=== PATIENT | female | born 1960 | race Caucasian/White ===

== ENCOUNTER 2019-11-03 07:51 | Outpatient (REF) | payer MEDICARE, OTHER, SELFPAY ==
[2019-11-03 13:15] LABS: Chol HDL Ratio 2.98 mg/dL (0.0-4.40); Cholesterol 182 mg/dL (0-200); Glucose 79 mg/dL (65-115); HDL Cholesterol 61 mg/dL (60-100); LDL Cholesterol Calculated 107 mg/dL (50-129); LDL HDL Ratio 1.75 RATIO (0.00-3.22); Triglycerides 72 mg/dL (0-150)
[2019-11-03 14:16] LABS: Estmated Average Glucose 111; Hemoglobin A1C 5.5 % (4.0-6.0)
== END 2019-11-03 07:52 | disposition home or self-care (01) ==
LOC: LAB 07:51
PROVIDERS: Family Provider Internal Medicine; Visit Provider Dermatology
DX: Z01.89 Encounter for other specified special examinations (principal)
CPT/HCPCS: 80061; 82947; 83036

== ENCOUNTER 2020-04-15 15:18 | Outpatient (CLI) | payer MEDICARE, OTHER, SELFPAY ==
--- NOTE | 2020-04-15 15:38 | XR_ITS ---
WS: [id number] SCREENING DEXA SCAN [employer] CLINICAL INFORMATION: POST MENOPAUSAL COMPARISON: 015 FINDINGS: The L1-L4 bone mineral density measures 1.171 g/cm2. This corresponds to a T score score of -0.1 and Z score of 0.7. Left femoral neck bone mineral density measures 0.961 g/cm2. This corresponds to a T score of -0.4 an d Z score of 0.2. Right femoral neck bone mineral density measures 0.874 g/cm2. This corresponds to a T score -1.1of an d Z score of -0.4. Mean femoral neck bone mineral density measures 0.917 g/cm2. This corresponds to a T score of -0.7 an d Z score of -0.1. XR/XR DEXA axial skeleton* [id number] IMPRESSION: Osteopenia at the lower end of the range. Patient's FRAX calculated 10 year probability for major osteoporotic fracture i s 7.4 % and osteoporotic hip fracture is 0.6%.
== END 2020-04-15 15:19 | disposition home or self-care (01) ==
LOC: RADWPI 15:22
PROVIDERS: Family Provider Internal Medicine; PCP Internal Medicine; Visit Provider Internal Medicine
DX: Z78.0 Asymptomatic menopausal state (principal); M85.89 Other specified disorders of bone density and structure, multiple sites
CPT/HCPCS: 77080

== ENCOUNTER 2020-09-03 15:21 | Outpatient (CLI) | payer MEDICARE, OTHER, SELFPAY ==
--- NOTE | 2020-09-03 15:34 | MM_ITS ---
WS: [id number] BILATERAL SCREENING DIGITAL MAMMOGRAM WITH CAD HISTORY: SCREENING COMPARISON: 05/02/2019 and 04/07/2018 Bilateral CC and MLO views submitted. Computer aided detection analyzed. Breast composition: There are scattered areas of fibroglandular density. No suspicious masses, microc alcifications or architectural distortion. Asymmetries are stable. MM/[place] [id number] IMPRESSION: BI-RADS: 2-Benign FOLLOW UP: 1 Year Follow-up
== END 2020-09-03 15:22 | disposition home or self-care (01) ==
PROVIDERS: PCP Internal Medicine; Visit Provider Internal Medicine
DX: Z12.31 Encounter for screening mammogram for malignant neoplasm of breast (principal)
CPT/HCPCS: 77067

== ENCOUNTER 2020-10-29 13:07 | Outpatient (CLI) | payer MEDICARE, OTHER, SELFPAY ==
--- NOTE | 2020-10-29 13:20 | CT_ITS ---
WS: [id number] CT ABDOMEN AND PELVIS WITH CONTRAST HISTORY: ACUTE ABDOMINAL PAIN TECHNIQUE: Imaging performed of the abdomen and pelvis with IV contrast. Single phase imaging of the abdomen. Coronal and sagittal reformats are submitted. All CT scans at [facility] use at least one of these dose optimization techniques: automated exposure control; mA and/or kV adjustment per patient size (includes targeted exams where dose is matched to clinical indication); or iterativ e reconstruction. IV CONTRAST: Visipaque 320; 95 mL IV. Oral contrast: No DLP: 873.75 mGy.cm COMPARISON: None available. Lower thorax: Lung bases are clear. Heart is normal size. Small hiatal hernia. Liver/biliary system: Normal size with no intrahepatic dilatation. Gallbladder: Normal. No gallstones or wall thickening. No pericholecystic fluid. Pancreas: Normal. Spleen: Normal. Adrenal glands: Normal. Right kidney: Normal. Left kidney: Normal. Aorta: Normal. Lymphadenopathy: None. Free fluid: None. GI tract: There is very mild dilatation of the appendix. Mild enhancement and haziness of the wall. A ppendix measures 8.2 mm. No calcifications with the appendix. Abdominal wall: Unremarkable abdominal wall. No hernia. Pelvis: Normal. Bones: Sclerotic foci within the bones of the pelvis and proximal RIGHT femur due to bone islands. CT/CT abdomen pelvis w con* [id number] IMPRESSION: 1. Very early acute appendicitis. No rupture or free fluid. 2. No renal stone or obstruction. Notified Chucky Cabral MD at 10/29/2020 2:19 PM.
[2020-10-29] MEDS: iodixanol 320 mg/mL 100mL Btl IV (14:07)
== END 2020-10-29 13:08 | disposition home or self-care (01) ==
LOC: RAD 13:15
PROVIDERS: PCP Internal Medicine; Visit Provider Family Medicine
DX: K35.80 Unspecified acute appendicitis (principal); R10.9 Unspecified abdominal pain
CPT/HCPCS: 74177

== ENCOUNTER 2020-10-29 15:42 | Day surgery (SDC) | payer MEDICARE, OTHER, SELFPAY ==
[2020-10-29] VITALS (11 sets, daily range): BP systolic 95–147; BP diastolic 63–115; PULSE 74–102; RESP 16–75; TEMP 36.5–37.3; O2SAT 94–100; BMI 32.9
--- NOTE | 2020-10-29 15:43 | ANES.PREANE2 ---
Pre-Anesthetic Assessment Pre-Anesthetic Assessment: Preop Diagnosis: Appendicitis Proposed Procedure: Operation Date: 10/29/20 16:05 Proposed Procedures p Laparoscopic Appendectomy 85475 K35.80(Not Applicable) - Jose Fernández MD Familial anesthetic complications: PONV Was Beta Rosmery taken within 24 hours: N/A Last intake: NPO > 8 hrs (black coffee shortly before 0900) Social: Social History: No alcohol and No tobacco Exam: Pre-Anes Outpt Exam: alert, oriented x 3, clear to auscultation bilaterally and regular rate & rhythm Airway: Cervical ROM: WNL MP: 2 Dentition: False and Partials GI: GI: GERD Anesthetic Plan: ASA status: 1E Anesthesia: General Risk of > 500 ml blood loss (7ml/kg in children): No Data Anesthesia Cardiac Studies: No Data to Display
[2020-10-29] MEDS: sodium chloride 0.9% 1,000 ML 30 ML IV (15:45)
--- NOTE | 2020-10-29 16:35 | PM.HP ---
Providers/Chief Complaint Primary Care Provider: Charly Mcbride DO Chief Complaint: appendectomy History of Present Illness Yumiko Donahue is a 60 year old female who presented to her PCPs office today morning with complaints of abdominal pain which started early this morning. Patient states that the pain was initially generalized but now is localized to the right lower quadrant. She had some nausea and chills but denies any fevers or vomiting. No constipation or diarrhea. She had a normal colonoscopy last year. Review of Systems General: Reports: 10 or more systems reviewed and unremarkable except in HPI and below Medications/Allergies Home Medications Medication Instructions Recorded Confirmed Last Taken Type alprazolam 0.5 mg PO DAILY 10/29/20 10/29/20 10/27/20 History cholecalciferol (vitamin D3) 50 mcg PO DAILY 10/29/20 10/29/20 10/28/20 History [Vitamin D3] omeprazole 20 mg PO DAILY 10/29/20 10/29/20 10/28/20 History sertraline 50 mg PO BEDTIME 10/29/20 10/29/20 10/28/20 History tizanidine 4 mg PO TID PRN 10/29/20 10/29/20 10/07/20 History Allergies Allergy/AdvReac Type Severity Reaction Status Date / Time No Known Allergies Allergy Unverified 10/29/20 15:05 PFSH Acute PFSH: Medical History (Updated 10/29/20 @ 16:37 by Jose Fernández MD) Anxiety and depression GERD (gastroesophageal reflux disease) Surgical History (Updated 10/29/20 @ 16:37 by Jose Fernández MD) H/O: hysterectomy S/P knee replacement Status post colonoscopy Vitals/I&O/Wt Last Vital Signs Temp 98.3 F 10/29/20 16:34 Pulse 84 10/29/20 16:34 Resp 18 10/29/20 16:34 BP 147/115 10/29/20 16:34 Pulse Ox 95 10/29/20 16:34 Weight last 48 hrs Weight 180 lb Weight 180 lb Physical Exam Narrative: EXAM NARRATIVE: HEENT: Normocephalic Eye: Sclera /conjunctiva normal Respiratory and chest: Bilateral clear breath sounds on auscultation Cardiovascular: Normal S1 and S2 heart sounds Abdomen: Soft to palpation, tender right lower quadrant, guarding present, no rigidity Neurological: Oriented to place person and time Skin: Intact, no lesions appreciated on gross exam A&P Assessment and plan (1) Acute appendicitis: 60-year-old female with right lower quadrant pain and tenderness, leukocytosis and CT scan showing dilated appendix. Discussed findings with the patient, plan for laparoscopic possible open appendectomy Procedure, risks, benefits and alternatives have been discussed with the patient who wishes to proceed with surgery. Status: Inactive (2) Acute appendicitis: Status: Acute Attestations Medical Necessity Statement*: Acute appendicitis requiring surgery Coding Level of Care Code Acute Damper Worker for [facility] Fwd Diagnoses Acute appendicitis K35.80 Acute appendicitis K35.80
[2020-10-29] MEDS: piperacillin-tazobactam 3.375 GM in sodium chloride 0.9% (plus) 50 ML IV (16:40)
--- NOTE | 2020-10-29 17:23 | P.OP_ITS ---
Operative Report Date of procedure: October 29, 2020 Pre-op Diagnosis: Acute appendicitis Post-op diagnosis: same Procedure Done: Laparoscopic appendectomy Specimens removed/disposition: Appendix Surgeon: Jose Fernández Anesthesia: General Condition: stable Disposition: PACU Procedure: The patient was taken to the Operating Room and intubated under general anesthesia after antibiotic had been administered. Using a 15 blade, a 1-cm infraumbilical incision was made and using open Adina technique, the peritoneal cavity was entered. A 12mm port with balloon was placed and 14 mm of pneumoperitoneum was created and 10-mm 30 degree scope was introduced. Two separate 5mm ports were placed in the left and right lower quadrant under direct visualization. The appendix was noted in the right lower quadrant and appeared acutely inflamed.. Using [place] forceps, an opening was made in the mesoappendix near the base of the appendix. An Endo LUIS stapler 45mm long 3.5mm blue load was introduced to divide the appendix at it's base. Using electroca utery, the mesoappendix including the appendicular artery was divided. There was no bleeding noted and the staple line appeared intact. The right lower quadrant was irrigated with saline and an EndoCatch bag was introduced to remove the appendix. All three ports were removed under direct visualization and there was no bleeding noted on the port sites. 10 cc of 0.5% Marcaine was infiltrated at the port sites. The fascia at the umbilical port was closed using figure of eight 0-Vicryl sutures and subcutaneous tissue was approximated using 3-0 Vicryl and skin at all 3 port sites was closed using 4-0 Monocryl and Dermabond. The patient was extubated and transferred recovery room in stable condition.
[2020-10-29] MEDS: HYDROmorphone 1 mg/mL INJ 1 mL 0.5 MG IVP (17:48)
--- NOTE | 2020-10-29 18:07 | SUR.PHASEI ---
1803 PT TO OPS 10 EARLIER AWAKE ALERT GRIMICING C/O OF APD PAIN OF 10 SEE FENTANYL 100MCG IVP GIVEN AT BEDSIDE IN INCREMENTS BY MISHA SERNA, PT REMAINS AWAKE ALERT RESTLESS AND C/O OF UNCHANGING PAIN ABD IS SOFT SITES X 3 D/I SEE MEDS GIVEN ORDERED BY TUBE CLEANING OPERATOR. 1748 DILAUDID IVP GIVEN FOR PAIN ABOVE FENTANYL HAD ALREADY BEEN GIVEN WITH NO RESULTS. PT NOW SMILING AND TALKING TO DAUGHTER AT BEDSIDE AND TAKING OCC ICE CHIPS HANDOFF AT BEDSIDE TO OPS NURSE. VSS SATS 98% ON RA.
--- NOTE | 2020-10-29 18:15 | ANE.PACU2 ---
Inpatient post-anesthesia follow up: Airway intact: Yes Vital signs: Temperature 97.7 F Pulse Rate 78 Respiratory Rate 18 Blood Pressure 123/74 Pulse Oximetry 94 Oxygen Delivery Me thod Room Air Oxygen Flow Rate 8 Fraction of Inspir ed Oxygen Hydration adequate: Yes Nausea and vomiting: No Pain level: 3 Mental status: Baseline
== END 2020-10-29 19:02 | disposition home or self-care (01) ==
PROVIDERS: PCP Internal Medicine; Visit Provider Surgery
PROC: 0DTJ4ZZ Resection of Appendix, Percutaneous Endoscopic Approach (ICD-10-PCS; CPT 44970; principal; 2020-10-29 15:45)
DX: K35.80 Unspecified acute appendicitis (principal); K21.9 Gastro-esophageal reflux disease without esophagitis
CPT/HCPCS: 44970; 12345; 74177; 88304; 96365; J0131; J1170; J2543; J2710; J3010; J3490; J7030

== ENCOUNTER 2022-01-08 08:32 | Outpatient (CLI) | payer MEDICARE, OTHER, SELFPAY ==
--- NOTE | 2022-01-08 08:52 | MM_ITS ---
WS: [id number] BILATERAL SCREENING 3D TOMOSYNTHESIS DIGITAL MAMMOGRAM WITH CAD HISTORY: SCREENING COMPARISON: 09/03/2020, 05/02/2019 Bilateral CC and MLO views submitted. Computer aided detection analyzed. Breast composition: There are scattered areas of fibroglandular density. No suspicious masses, microc alcifications or architectural distortion. Area of architectural distortion in the anterior lateral R IGHT breast has been present on multiple prior examinations. MM/[place] [id number] IMPRESSION: BI-RADS: 2-Benign FOLLOW UP: 1 Year Follow-up
== END 2022-01-08 08:33 | disposition home or self-care (01) ==
LOC: RAD 08:40
PROVIDERS: PCP Internal Medicine; Visit Provider Internal Medicine
DX: Z12.31 Encounter for screening mammogram for malignant neoplasm of breast (principal)
CPT/HCPCS: 77063; 77067

== ENCOUNTER 2022-07-14 13:15 | Outpatient (CLI) | payer MEDICARE, OTHER, SELFPAY ==
--- NOTE | 2022-07-14 13:28 | XR_ITS ---
WS: [id number] DEXA (DUAL ENERGY X-RAY ABSORPTIOMETRY) Bone mineral density was performed using a [employer] machine. HISTORY: POSTMENOPAUSAL COMPARISON: 04/15/2020 Lumbar spine BMD (L1-L4): 1.266 T score: 0.8 Z score: 1.5 Total hip BMD: Left: 0.976 g/cm2. T score: -0.3 Z score: 0.3 Right: 0.911 g/cm2. T score: -0.8 Z score: -0.2 10 year probability of a major osteoporotic fracture is 7.3% Compared to the prior study from 04/15/2020. Lumbar spine bone mineral density has increased by 5.8%. Bilateral hips bone mineral density has increased by 2.9%. XR/XR DEXA axial skeleton* [id number] IMPRESSION: NORMAL BONE MINERAL DENSITY based upon the WHO classification for females. Significant increase in bone mineral density within the lumbar spine and hips s kathrine the prior study.
== END 2022-07-14 13:16 | disposition home or self-care (01) ==
LOC: RAD 13:16
PROVIDERS: PCP Internal Medicine; Visit Provider Internal Medicine
DX: Z78.0 Asymptomatic menopausal state (principal)
CPT/HCPCS: 77080

== ENCOUNTER 2023-02-15 08:25 | Outpatient (CLI) | payer MEDICARE, OTHER, SELFPAY ==
--- NOTE | 2023-02-15 08:33 | MM_ITS ---
WS: [id number] SCREENING DIGITAL BREAST TOMOSYNTHESIS MAMMOGRAM WITH CAD HISTORY: SCREENING COMPARISON: 01/08/2022, 09/03/2020, 03/31/2017 Bilateral CC and MLO with tomosynthesis and synthetic mammography submitted. Computer aided detection analyzed. Breast composition: There are scattered areas of fibroglandular density. Increasing asymmetry and nod ular densities in the anterior LEFT breast. These are just posterior and superior to the nipple line. Small benign calcifications. MM/[place] [id number] IMPRESSION: BI-RADS: 0-Incomplete: Need additional imaging evaluation FOLLOW UP: Need Additional Imaging LEFT breast: Spot compression views (CC and MLO). True ML. Ultrasound to follow if abnormality persists.
== END 2023-02-15 08:26 | disposition home or self-care (01) ==
LOC: RAD 08:28
PROVIDERS: PCP Internal Medicine; Visit Provider Internal Medicine
DX: Z12.31 Encounter for screening mammogram for malignant neoplasm of breast (principal)
CPT/HCPCS: 77063; 77067

== ENCOUNTER 2023-03-15 10:49 | Outpatient (CLI) | payer MEDICARE, OTHER, SELFPAY ==
--- NOTE | 2023-03-15 10:57 | MM_ITS ---
WS: [id number] ADDITIONAL VIEWS LEFT MAMMOGRAM WITH DIGITAL BREAST TOMOSYNTHESIS. HISTORY: Abnormal screening mammogram 02/15/2023. COMPARISON: None available. Spot compression views LEFT breast in CC, MLO projections and true ML submitted with digital breast t omosynthesis and SM. The asymmetry described in the anterior LEFT breast on the prior study resolved with additional imagi ng. This was likely superimposed fibroglandular soft tissues. No residual mass or distortion. MM/[place] [id number] IMPRESSION: BI-RADS: 2-Benign FOLLOW UP: 1 Year Follow-up
== END 2023-03-15 10:50 | disposition home or self-care (01) ==
LOC: RAD 10:53
PROVIDERS: PCP Internal Medicine; Visit Provider Internal Medicine
DX: R92.8 Other abnormal and inconclusive findings on diagnostic imaging of breast (principal)
CPT/HCPCS: 77061; G0279

== ENCOUNTER → 2023-11-15 09:19 | Outpatient (BNVA) | payer MEDICARE, OTHER, SELFPAY | PROVIDERS: PCP Internal Medicine; Visit Provider Internal Medicine | DX: Z13.6 Encounter for screening for cardiovascular disorders (principal) | CPT/HCPCS: 80061; 82947; 83036 ==

== ENCOUNTER 2024-10-10 08:01 | Outpatient (CLI) | payer MEDICARE, OTHER, SELFPAY ==
--- NOTE | 2024-10-10 08:04 | MM_ITS ---
WS: [id number] BILATERAL 3D TOMOSYNTHESIS DIGITAL SCREENING MAMMOGRAPHY WITH CAD CLINICAL INFORMATION: SCREENING HISTORY: Screening mammogram. No current complaints. COMPARISON: 2022 TECHNIQUE: Bilateral CC and MLO views. FINDINGS: Scattered fibroglandular densities bilaterally. No suspicious focal mass, asymmetry, calcifications, or architectural distortion. No evidence of malignancy. Few incidental punctate calcifications. Vascu lar calcification. MM/MM scr tomosynthesis [id number] IMPRESSION: DENSITY: There are scattered areas of fibroglandular density. BI-RADS: 2 - Benign. FOLLOW UP: 1 Year Follow-up Recommend return to annual screening mammography.
== END 2024-10-10 08:02 | disposition home or self-care (01) ==
LOC: RAD 08:03
PROVIDERS: PCP Electrodiagnostic Medicine; Visit Provider Electrodiagnostic Medicine
DX: Z12.31 Encounter for screening mammogram for malignant neoplasm of breast (principal); R92.323 Mammographic fibroglandular density, bilateral breasts; R92.1 Mammographic calcification found on diagnostic imaging of breast
CPT/HCPCS: 77063; 77067

== ENCOUNTER 2024-10-26 15:19 | Outpatient (CLI) | payer MEDICARE, OTHER, SELFPAY ==
--- NOTE | 2024-10-26 15:24 | USCV_ITS ---
Yumiko Donahue Age: 64 Gender: F : 1960 Exam Date: 10/26/2024 15:38 Ordering Phys: Juan Pablo Jones DO Technologist: SONY [place] [facility] [place] Ind[place]: Stenosis Risk Factors: Previous Vascular Surgery: Right Brachial BP: / Left Brachial BP: / Right Left Velocity (cm/s) Spectral Plaque Velocity (cm/s) Spectral Plaque Syst/Diast Broadening Syst/Diast Broadening 85.40/ 19.30 Prox CCA 75.10 / 14.30 82.80/ 21.90 Mid CCA 83.50 / 18.00 73.60/ 21.90 Distal CCA 67.60 / 18.50 62.20/ 16.30 Prox ICA 48.50 / 15.10 68.50/ 23.10 Mid ICA 71.80 / 25.10 89.50/ 29.30 Distal ICA 66.50 / 22.90 101.60 ECA 65.40 0.80 ICA/CCA 0.70 Antegrade Vertebral Antegrade 45.60/ 9.50 cm/s 36.90/ 10.50 cm/s Tri Subclavian Tri 142.5 91.00 0 CONCLUSIONS Right ICA stenosis <50%. Mild to moderate atheromatous plaque right carotid bulb/ICA. Left ICA stenosis <50%. Mild to moderate atheromatous plaque left carotid bulb/ICA. Intimal thickening in the common carotid arteries and internal carotid arteries bilaterally. Normal antegrade Doppler flow noted in the right vertebral artery. Normal antegrade Doppler flow noted in the left vertebral artery. Bud Dietz MD (Electronically Signed) Final Date: 26 October 2024 16:43 S
== END 2024-10-26 15:20 | disposition home or self-care (01) ==
LOC: RAD 15:20
PROVIDERS: PCP Internal Medicine; Visit Provider Electrodiagnostic Medicine
DX: I65.23 Occlusion and stenosis of bilateral carotid arteries (principal); R93.89 Abnormal findings on diagnostic imaging of other specified body structures
CPT/HCPCS: 93880